=== PATIENT | female | born 1955 | race Caucasian/White ===

== ENCOUNTER 2022-07-19 11:01 | Day surgery (SDC) | payer MEDICARE, MEDICAID ==
[2022-07-19] VITALS (8 sets, daily range): BP systolic 95–137; BP diastolic 48–72
[~2022-07-19] VITALS: Ht 162.6 cm; Wt 79.1 kg
[2022-07-19] MEDS ORDERED: normal saline 1,000 ML IV SCH (11:40)
[2022-07-19] MEDS ORDERED: diphenhydrAMINE 25mg capsule PO PRN (11:40)
[2022-07-19] MEDS ORDERED: LORazepam 0.5 MG tablet PO PRN (11:40)
[2022-07-19] MEDS ORDERED: DOCU250C16 PO (11:45)
[2022-07-19] MEDS ORDERED: CLON0.1T2 PO (11:45)
[2022-07-19] MEDS ORDERED: ALBU18HF2 INH (11:45)
[2022-07-19] MEDS ORDERED: ASPI81TA52 PO (11:45)
[2022-07-19] MEDS ORDERED: LINA5TAB4 PO (11:45)
[2022-07-19] MEDS ORDERED: LOSA100T57 PO (11:45)
[2022-07-19] MEDS ORDERED: GABA-530 PO (11:45)
[2022-07-19] MEDS ORDERED: AMLO10TA13 PO (11:45)
[2022-07-19] MEDS ORDERED: ACET-1985 PO (11:45)
[2022-07-19] MEDS ORDERED: BUDE10.2 INH (11:45)
[2022-07-19] MEDS ORDERED: HYDR-3686 PO (11:45)
[2022-07-19] MEDS ORDERED: ROSU10TA28 PO (11:45)
[2022-07-19] MEDS ORDERED: INSU100I31 SQ (11:45)
[2022-07-19] MEDS ORDERED: OMEP20CA16 PO (11:45)
[2022-07-19] MEDS ORDERED: INSU100V55 SQ (11:45)
[2022-07-19] MEDS ORDERED: FLUO-167 PO (11:45)
[2022-07-19 11:55] LABS: BASOPHILS # (AUTO) 0.1 X10'3 (0-0.2); BASOPHILS % (AUTO) 0.7 % (0-1); EOSINOPHILS # (AUTO) 0.1 X10'3 (0-0.9); EOSINOPHILS % (AUTO) 1.6 % (0-6); HEMATOCRIT 34.7 % (35.0-45.0); HEMOGLOBIN 11.5 g/dl (12.0-16.0); LYMPHOCYTES # (AUTO) 1.4 X10'3 (1.1-4.8); LYMPHOCYTES % (AUTO) 17.1 % (21-51); MEAN CORPUSCULAR HEMOGLOBIN 29.1 PG (27.0-31.0); MEAN CORPUSCULAR HGB CONC 33.2 g/dL (33.0-36.5); MEAN CORPUSCULAR VOLUME 87.8 FL (78-98); MONOCYTES # (AUTO) 0.6 X10'3 (0-0.9); MONOCYTES % (AUTO) 6.6 % (2-12); NEUTROPHILS # (AUTO) 6.3 X10'3 (1.8-7.7); PLATELET COUNT 431 X10'3 (140-440); RED BLOOD COUNT 3.95 X10'6 (4.20-5.60); RED CELL DISTRIBUTION WIDTH 13.2 % (11.5-14.5); WHITE BLOOD COUNT 8.4 X10'3 (4.5-11.0)
[2022-07-19 12:03] LABS: ALBUMIN 3.3 G/DL (3.4-5.0); ANION GAP 8 (8-16); BLOOD UREA NITROGEN 31 MG/DL (7-18); BUN/CREATININE RATIO 11.7 (6.6-38.0); CALCIUM 9.2 MG/DL (8.5-10.1); CHLORIDE 109 MMOL/L (99-107); CREATININE 2.66 MG/DL (0.40-0.90); GLUCOSE 133 MG/DL (70-104); POTASSIUM 4.3 MMOL/L (3.5-5.1); SODIUM 139 MMOL/L (135-145); TOTAL CARBON DIOXIDE 22.2 MMOL/L (24-32); eGFR 18 ML/MIN
[2022-07-19 12:06] LABS: APTT 24 SECONDS (22-32)
[2022-07-19] MEDS ORDERED: fentaNYL/PF 50MCG/1 ML 2ML syringe ONE (12:26)
[2022-07-19] MEDS ORDERED: midazolam 1 mg/ML 2ml injection ONE (12:27)
[2022-07-19] MEDS ORDERED: LIDOcaine 1% (10mg/ml) 2ml vial ONE (12:27)
[2022-07-19] MEDS ORDERED: iohexol 350MG/ML 100ml bottle IV ONE (12:27)
[2022-07-19] MEDS ORDERED: nitroGLYCERIN-Tridil 50MG/D5W 250 ML IV ONE (12:35)
[2022-07-19] MEDS ORDERED: heparin 1,000unit/ml 10ml vial 10 ML ONE (12:35)
[2022-07-19] MEDS ORDERED: verapamil 2.5 mg/ml inj IV ONE (12:35)
== END 2022-07-19 16:30 | disposition home or self-care (01) ==
LOC: SSTAY O 11:01
PROVIDERS: ATTEND Internal Medicine Interventional Cardiology
DX: I35.0 Nonrheumatic aortic (valve) stenosis (principal); G47.33 Obstructive sleep apnea (adult) (pediatric); J44.9 Chronic obstructive pulmonary disease, unspecified; I12.0 Hypertensive chronic kidney disease with stage 5 chronic kidney disease or end stage renal disease; E11.22 Type 2 diabetes mellitus with diabetic chronic kidney disease; N18.9 Chronic kidney disease, unspecified; N18.5 Chronic kidney disease, stage 5; E66.9 Obesity, unspecified; E21.3 Hyperparathyroidism, unspecified; Z91.040 Latex allergy status; Z91.048 Other nonmedicinal substance allergy status; Z88.8 Allergy status to other drugs, medicaments and biological substances; Z91.011 Allergy to milk products; Z79.899 Other long term (current) drug therapy; Z79.82 Long term (current) use of aspirin; Z79.84 Long term (current) use of oral hypoglycemic drugs; Z79.4 Long term (current) use of insulin; Z90.3 Acquired absence of stomach [part of]
CPT/HCPCS: 36415; 80048; 82948; 85025; 85610; 85730; 93005; 93454; 99152; C1769; C1894; J1644; J2250; J3010; J3490; J7030; Q0163; Q9967; 99153; A4620; A6258; A6402

== ENCOUNTER 2022-09-29 09:33 | Inpatient (IN) | payer MEDICARE, MEDICAID ==
[2022-09-21 16:14] LABS: BASOPHILS % (AUTO) 0.5 % (0-1); EOSINOPHILS # (AUTO) 0.3 X10'3 (0-0.9); EOSINOPHILS % (AUTO) 3.2 % (0-6); LYMPHOCYTES # (AUTO) 2.1 X10'3 (1.1-4.8); LYMPHOCYTES % (AUTO) 25.6 % (21-51); MEAN CORPUSCULAR HGB CONC 32.7 g/dL (33.0-36.5); MEAN CORPUSCULAR VOLUME 88.5 FL (78-98); MEAN PLATELET VOLUME 7.6 FL (7.4-10.4); MONOCYTES # (AUTO) 0.8 X10'3 (0-0.9); MONOCYTES % (AUTO) 10.4 % (2-12); NEUTROPHILS # (AUTO) 4.8 X10'3 (1.8-7.7); NEUTROPHILS % (AUTO) 60.3 % (42-75); PRE OP HEMATOCRIT 34.3 % (35.0-45.0); PRE OP HEMOGLOBIN 11.2 g/dL (12.0-16.0); PRE OP PLATELET COUNT 343 X10'3 (140-440); RED BLOOD COUNT 3.88 X10'6 (4.20-5.60); RED CELL DISTRIBUTION WIDTH 13.2 % (11.5-14.5)
[2022-09-21 16:28] LABS: CLARITY,URINE CLEAR (Clear); COLOR,URINE YELLOW (Yellow); GLUCOSE, URINE NEGATIVE (Neg); KETONES,URINE NEGATIVE (Neg); LEUKOCYTE ESTERASE ,URINE NEGATIVE (Neg); NITRITES, URINE NEGATIVE (Neg); OCCULT BLOOD,URINE NEGATIVE (Neg); PH,URINE 5.5 (4.8-8.0); PROTEIN,URINE NEGATIVE (Neg); UROBILINOGEN,URINE 0.2 E.U/dL (0.2-1.0)
[2022-09-21 16:31] LABS: ALBUMIN 3.7 G/DL (3.4-5.0); ALBUMIN/GLOBULIN RATIO 1.1 (1.1-1.5); ALKALINE PHOSPHATASE 72 IU/L (46-116); BLOOD UREA NITROGEN 35 MG/DL (7-18); BUN/CREATININE RATIO 13.2 (6.6-38.0); CALCIUM 9.5 MG/DL (8.5-10.1); CHLORIDE 105 MMOL/L (99-107); CREATININE 2.65 MG/DL (0.40-0.90); HEMOGLOBIN A1C 7.7 % (4.5-6.2); PRE OP ALT 31 U/L (30-65); PRE OP ANION GAP 7 (8-16); PRE OP AST 22 U/L (10-37); PRE OP BILIRUB, TOTAL 0.3 MG/DL (0.0-1.0); PRE OP GLUCOSE 72 MG/DL (70-104); PRE OP POTASSIUM 4.2 MMOL/L (3.4-5.1); PRE OP SODIUM 137 MMOL/L (135-145); TOTAL CARBON DIOXIDE 24.8 MMOL/L (24-32); eGFR 18 ML/MIN
[2022-09-21 16:35] LABS: UA COLLECTION TYPE CLN CATCH MIDSTREAM
[~2022-09-29] VITALS: Ht 162.6 cm; Wt 79.4 kg
[2022-09-29] VITALS (26 sets, daily range): BP systolic 112–174; BP diastolic 46–121
[~2022-09-29 09:33] MED LIST: ACET-1985 PO; ALBU18HF2 INH; AMLO10TA13 PO; ASPI81TA52 PO; BUDE10.2 INH; CLON0.1T2 PO; DOCU250C16 PO; FLUO-167 PO; GABA-530 PO; HYDR-3686 PO; INSU100I31 SQ; INSU100V43 SQ; LINA145C PO; LINA5TAB4 PO; LOSA100T57 PO; OMEP20CA16 PO; ROSU10TA28 PO; aspirin 325mg tablet PO ONE; ceFAZolin inj. 2,000 MG in dextrose 5%-water 100 ML IV ONE; famotidine 20mg tablet PO ONE; nitroPRUSSIDE (NIPRIDE) (200MCG/ML) 100ML Drip IV SCH; ondansetron/PF 4mg/2ml inj IV PRN; phenylephrine inj 50 MG in normal saline 250ml IV solN IV SCH; protamine sulfate 10mg/ml inj. ONE; ringers solution, lacted 1,000 ML IV SCH; vancomycin 1,500 MG in NS 300ml IV soln IV ONE
[2022-09-29] MEDS ORDERED: LIDOcaine 1% (10mg/ml) 2ml vial ONE (10:01)
[2022-09-29] MEDS ORDERED: morphine 2 MG/ML inj. syringe IV PRN (11:50)
[2022-09-29] MEDS ORDERED: ondansetron/PF 4mg/2ml inj IV PRN ×2 (11:50→13:45)
[2022-09-29] MEDS ORDERED: meperidine/PF 25mg/ml syringe IV PRN ×3 (11:50)
[2022-09-29] MEDS ORDERED: proCHLORperazine 10 MG/2 ml inj IV PRN ×2 (11:50→13:45)
[2022-09-29] MEDS ORDERED: ringers solution, lacted 1,000 ML IV SCH (11:50)
[2022-09-29] MEDS ORDERED: morphine 4 MG/ML inj SYRINge IV PRN (11:50)
[2022-09-29] MEDS ORDERED: heparin 1,000 UNITS/NS 500ml 1,500 ML ONE (12:08)
[2022-09-29] MEDS ORDERED: iohexol 350 MG/ML 50ML vial IV ONE ×2 (12:10→12:53)
[2022-09-29] MEDS ORDERED: iohexol 350MG/ML 100ml bottle IV ONE (12:10)
[2022-09-29] MEDS ORDERED: LIDOcaine 1% 30ml preserv. free vial ONE (12:15)
[2022-09-29] MEDS ORDERED: fentaNYL/PF 50MCG/1 ML 2ML syringe ONE (12:34)
[2022-09-29] MEDS ORDERED: midazolam 1 mg/ML 2ml injection ONE (12:38)
[2022-09-29] MEDS ORDERED: propofol inj 20 ML IV ONE ×2 (12:38)
[2022-09-29] MEDS ORDERED: heparin 1,000unit/ml 10ml vial 10 ML ONE (12:51)
--- NOTE | 2022-09-29 13:41 | NUR ---
Received from OR via HOSPITAL BED TO RECOVERY ROOM 8, accompanied by Anesthesiologist DR VANESSA and report given by Anesthesiolgist. PT PRESENTS WITH PIC 20G RIGHT HAND, ART LINE LEFT WRIST, PEDAL PULSES PALPABLE, NEURO CHECK COMPLETED SEE DOCUMENTATION, BILATERAL GROIN SITES, SOFT NON TENDER. VSS. Addendum: 09/29/22 at 1428 by Katerina Rios RN, RN Amended: Links added.
[2022-09-29] MEDS ORDERED: pantoprazole 40mg Tablet.DR PO PRN (13:45)
[2022-09-29] MEDS ORDERED: diphenhydrAMINE 25mg capsule PO PRN (13:45)
[2022-09-29] MEDS ORDERED: potassium Cl 20 mEq SR tablet PO PRN (13:45)
[2022-09-29] MEDS ORDERED: insulin Lispro (HumaLOG) vial - multi-dose SQ SCH (13:45)
[2022-09-29] MEDS ORDERED: potassium Cl 20mEq/100mL bag 100 ML IV PRN (13:45)
[2022-09-29] MEDS ORDERED: magnesium 4gm in 100ml NS 100 ML IV PRN (13:45)
[2022-09-29] MEDS ORDERED: insulin regular, human U-100 3ml vial - multi-dose SQ SCH (13:45)
[2022-09-29] MEDS ORDERED: potassium Cl 40MEQ/270ML bag 250 ML IV PRN (13:45)
[2022-09-29] MEDS ORDERED: ALPRAZolam 0.25mg tablet PO PRN (13:45)
[2022-09-29] MEDS ORDERED: MESSAGE TO PHARMACY PO ONE (13:45)
[2022-09-29] MEDS ORDERED: HYDROcodone/acetaminophen 5mg/325mg tablet PO PRN (13:45)
[2022-09-29] MEDS ORDERED: hydrALAZINE 20mg/ml inj. IV PRN (13:45)
[2022-09-29] MEDS ORDERED: docusate sod 100mg capsule PO PRN (13:45)
[2022-09-29] MEDS ORDERED: dextrose 50%-water 50ml dispensing syringe IV PRN ×2 (13:45)
[2022-09-29] MEDS ORDERED: DEXTROSE 15 GM of carb/4 tabs (each vial/BOTTLE has 4 tablets) PO PRN ×2 (13:45)
[2022-09-29] MEDS ORDERED: labetalol 20mg/4ml (5mg/ml) syringe IV PRN (13:45)
[2022-09-29] MEDS ORDERED: acetaminophen 325mg tablet PO PRN (13:45)
[2022-09-29] MEDS ORDERED: glucagon, human recombinant 1mg kit SUBCUT PRN (13:45)
[2022-09-29] MEDS ORDERED: magnesium 2GM in 50ml NS 50 ML IV PRN (13:45)
[2022-09-29] MEDS ORDERED: potassium CL 10mEq/100ml bag 100 ML IV PRN (13:45)
[2022-09-29] MEDS ORDERED: potassium Cl 40MEQ/1/2NS 520ml 520 ML IV PRN (13:45)
--- NOTE | 2022-09-29 14:11 | NUR ---
INTERNATIONAL LOGISTICS ANALYSTFRANNY LOPES AT [facility] GETTING POST-TAVR EKG.
--- NOTE | 2022-09-29 15:31 | NUR ---
Report called to receiving nurse MUSTAPHA PRITCHARD. Transferred via HOSPITAL BED TO ROOM 3023A [facility]. BED IN LOW LOCKED POSITION, CALL LIGHT IN REACH, PT HOOKED UP TO BEDSIDE MONITOR. PT Belongings ONE BAG TO ROOM 3023A WITH READING GLASSES. Special Issues communicated to receiving nurse. Addendum: 09/29/22 at 1546 by Katerina Rios RN, RN Amended: Links added.
[2022-09-29] MEDS: sod chloride 0.9% 10ml flush syringe IV SCH ×2 (16:00→23:12)
[2022-09-29] MEDS ORDERED: non-formulary drug (Omeprazole 1 CAP) PO PRN (16:20)
[2022-09-29] MEDS ORDERED: albuterol 2.5 MG/3 ML nebule NEB PRN (16:20)
--- NOTE | 2022-09-29 18:50 | NUR ---
Problems reprioritized. Patient report given, questions answered & plan of care reviewed with Henrique PRITCHARD, patient stable at transfer of care.
[2022-09-29] MEDS: normal saline 1000ml 1,000 ML IV SCH ×2 (18:58→23:31)
[2022-09-29] MEDS: ceFAZolin 1GM/D5W- ADD-VANTAGE 50 ML IV SCH ×2 (18:58→23:31)
[2022-09-29] MEDS: vancomycin/NS 1 GM ADD-VANTAGE 250 ML IV SCH (19:59)
[2022-09-29] MEDS ORDERED: DOCUSATE SODIUM PO SCH (20:00)
[2022-09-29] MEDS: cloNIDine 0.1 mg tablet PO SCH (20:00)
[2022-09-29] MEDS: budesonide 0.5mg/2ml UD nebule IH SCH (20:10)
[2022-09-29] MEDS ORDERED: ACETAMINOPHEN PO SCH (21:00)
[2022-09-29] MEDS ORDERED: atorvastatin 20mg tablet PO SCH (21:00)
[2022-09-29] MEDS ORDERED: losartan 50mg tablet PO SCH (21:00)
[2022-09-29] MEDS ORDERED: hydrOXYzine 25 MG tablet PO SCH (21:00)
[2022-09-29] MEDS ORDERED: FLUoxetine 20mg capsule PO SCH (21:00)
[2022-09-29] MEDS ORDERED: insulin glargine (Lantus) pen - multi-dose SQ SCH (21:00)
[2022-09-29] MEDS ORDERED: gabapentin 100mg capsule PO SCH (21:00)
[2022-09-30] VITALS: BP 125/47
[2022-09-30 04:00] VITALS: BP 130/50
[2022-09-30 07:52] LABS: BASOPHILS # (AUTO) 0.1 X10'3 (0-0.2); BASOPHILS % (AUTO) 0.7 % (0-1); EOSINOPHILS % (AUTO) 0.3 % (0-6); HEMATOCRIT 31.4 % (35.0-45.0); HEMOGLOBIN 10.2 g/dl (12.0-16.0); LYMPHOCYTES # (AUTO) 0.9 X10'3 (1.1-4.8); LYMPHOCYTES % (AUTO) 11.4 % (21-51); MEAN CORPUSCULAR HEMOGLOBIN 28.7 PG (27.0-31.0); MEAN CORPUSCULAR HGB CONC 32.4 g/dL (33.0-36.5); MEAN CORPUSCULAR VOLUME 88.7 FL (78-98); MEAN PLATELET VOLUME 7.6 FL (7.4-10.4); MONOCYTES # (AUTO) 0.9 X10'3 (0-0.9); MONOCYTES % (AUTO) 11.4 % (2-12); NEUTROPHILS # (AUTO) 5.9 X10'3 (1.8-7.7); NEUTROPHILS % (AUTO) 76.2 % (42-75); PLATELET COUNT 233 X10'3 (140-440); RED BLOOD COUNT 3.55 X10'6 (4.20-5.60); RED CELL DISTRIBUTION WIDTH 12.7 % (11.5-14.5); WHITE BLOOD COUNT 7.7 X10'3 (4.5-11.0)
[2022-09-30] MEDS: ceFAZolin 1GM/D5W- ADD-VANTAGE 50 ML IV SCH (07:57)
[2022-09-30] MEDS: cloNIDine 0.1 mg tablet PO SCH (07:58)
[2022-09-30 07:59] VITALS: BP_SYST 134
[2022-09-30] MEDS ORDERED: aspirin 81mg, enteric-coated 1 TAB TABLET.DR PO SCH (08:00)
[2022-09-30] MEDS ORDERED: amLODIPine 5mg tablet PO SCH (08:00)
[2022-09-30] MEDS ORDERED: gabapentin 100mg capsule PO SCH (08:00)
[2022-09-30] MEDS: sod chloride 0.9% 10ml flush syringe IV SCH (08:10)
[2022-09-30] MEDS ORDERED: aspirin 81mg tab.chew PO SCH (08:30)
[2022-09-30 08:36] LABS: ALANINE AMINOTRANSFERASE 15 U/L (12-78); ALBUMIN 3.1 G/DL (3.4-5.0); ALKALINE PHOSPHATASE 67 IU/L (46-116); ANION GAP 9 (8-16); ASPARTATE AMINO TRANSFERASE 19 U/L (10-37); BILIRUBIN,TOTAL 0.4 MG/DL (0.1-1.0); BLOOD UREA NITROGEN 33 MG/DL (7-18); BUN/CREATININE RATIO 11.3 (6.6-38.0); CALCIUM 8.6 MG/DL (8.5-10.1); CHLORIDE 105 MMOL/L (99-107); CREATININE 2.93 MG/DL (0.40-0.90); GLUCOSE 161 MG/DL (70-104); MAGNESIUM 1.7 MG/DL (1.5-2.4); POTASSIUM 4.4 MMOL/L (3.5-5.1); SODIUM 136 MMOL/L (135-145); TOTAL CARBON DIOXIDE 21.6 MMOL/L (24-32); TOTAL PROTEIN 6.2 G/DL (6.4-8.2); eGFR 16 ML/MIN
[2022-09-30] MEDS: budesonide 0.5mg/2ml UD nebule IH SCH (09:35)
[2022-09-30] MEDS: vancomycin/NS 1 GM ADD-VANTAGE 250 ML IV SCH (09:38)
--- NOTE | 2022-09-30 09:40 | NUR ---
Per EMR pt with T2DM, fairly well controlled with A1c 7.7%. Written DM education with RD contact information placed in patient's chart. Will remain available. Addendum: 09/30/22 at [address] Amended: Links added.
--- NOTE | 2022-09-30 16:01 | NUR ---
Pt stable for discharge per Dr. Nara Toscano/ Dr. Martínez. All discharge instructions reviewed with patient and all questions answered, pt verbalized understanding. Sent the patient with her new health ID card and angioseal ID card. No new medications ordered. PIV discontinued, cannula intact. Tele discontinued. All belongings collected and sent with patient. Wheeled to lobby via nursing staff and picked up by spouse.
== END 2022-09-30 13:53 | disposition home or self-care (01) | DRG 267 ==
LOC: PAS IN 09:33 → PCU 3S 15:36
PROVIDERS: ADMIT Internal Medicine Cardiovascular Disease; ATTEND Internal Medicine Cardiovascular Disease
PROC: B41D1ZZ Fluoroscopy of Aorta and Bilateral Lower Extremity Arteries using Low Osmolar Contrast (ICD-10-PCS; 2022-09-29)
PROC: 02RF38Z Replacement of Aortic Valve with Zooplastic Tissue, Percutaneous Approach (ICD-10-PCS; principal; 2022-09-29 12:31)
DX: I35.0 Nonrheumatic aortic (valve) stenosis (principal); Z00.6 Encounter for examination for normal comparison and control in clinical research program; N18.4 Chronic kidney disease, stage 4 (severe); E11.22 Type 2 diabetes mellitus with diabetic chronic kidney disease; E78.5 Hyperlipidemia, unspecified; I12.9 Hypertensive chronic kidney disease with stage 1 through stage 4 chronic kidney disease, or unspecified chronic kidney disease; I25.10 Atherosclerotic heart disease of native coronary artery without angina pectoris; J44.9 Chronic obstructive pulmonary disease, unspecified; Z98.61 Coronary angioplasty status; Z98.84 Bariatric surgery status
CPT/HCPCS: 33361; 36415; 71045; 71046; 76937; 80053; 81003; 82948; 83036; 83735; 83880; 85025; 85347; 85610; 85730; 86885; 86900; 86901; 86920; 87081; 93005; 93308; 94640; 94760; A4618; A6258; A6449; C1756; C1760; C1769; C1894; G0378; J0360; J0690; J0780; J1644; J1815; J2250; J2270; J2370; J2704; J2720; J3010; J3370; J3490; J7030; J7040; J7050; J7060; J7120; Q0177; Q9967